=== PATIENT | female | born 1995 | race Two or more races ===

== ENCOUNTER 2018-04-02 09:09 | Outpatient (CLI) | payer OTHER ==
[~2018-04-02 09:09] MED LIST: FLEXERIL 10 MG PO; TORADOL60 MG IM; [UNRECOGNIZED DRUG - OTHER] PO
== END 2018-04-02 09:15 | disposition home or self-care (01) ==
LOC: LAB 09:09
DX: Z11.59 Encounter for screening for other viral diseases (principal); Z13.1 Encounter for screening for diabetes mellitus; Z11.3 Encounter for screening for infections with a predominantly sexual mode of transmission; E66.3 Overweight

== ENCOUNTER 2018-06-19 14:54 | Outpatient (CLI) | payer OTHER | END 2018-06-19 15:26 | disposition home or self-care (01) | LOC: NUCLEAR 14:54 | DX: I87.2 Venous insufficiency (chronic) (peripheral) (principal) ==

== ENCOUNTER 2018-11-26 08:47 | Outpatient (CLI) | payer OTHER | END 2018-11-26 11:25 | disposition home or self-care (01) | LOC: LAB 08:47 | DX: Z34.81 Encounter for supervision of other normal pregnancy, first trimester (principal) ==

== ENCOUNTER 2018-12-05 16:28 | Emergency (ER) | payer OTHER ==
[~2018-12-05] VITALS: Ht 165.1 cm; Wt 73.5 kg
[2018-12-05] MEDS ORDERED: ZANTAC150 MG PO (21:33)
[2018-12-05] MEDS ORDERED: ONDANSETRON ODT4 MG SL (21:33)
== END 2018-12-05 22:14 | disposition home or self-care (01) ==
LOC: ER 16:28
DX: O26.892 Other specified pregnancy related conditions, second trimester (principal); K29.70 Gastritis, unspecified, without bleeding; Z34.02 Encounter for supervision of normal first pregnancy, second trimester

== ENCOUNTER 2018-12-30 09:47 | Outpatient (CLI) | payer OTHER ==
[~2018-12-30 09:47] MED LIST changes: +ONDANSETRON ODT4 MG SL; +ZANTAC150 MG PO
== END 2018-12-30 10:53 | disposition home or self-care (01) ==
LOC: LAB 09:47
DX: Z34.81 Encounter for supervision of other normal pregnancy, first trimester (principal); Z34.82 Encounter for supervision of other normal pregnancy, second trimester

== ENCOUNTER 2019-02-06 09:51 | Outpatient (CLI) | payer OTHER | END 2019-02-06 09:56 | disposition home or self-care (01) | LOC: LAB 09:51 | DX: N30.00 Acute cystitis without hematuria (principal) ==

== ENCOUNTER 2019-02-12 09:41 | Inpatient (IN) | payer OTHER ==
[~2019-02-12] VITALS: Ht 165.1 cm; Wt 77.1 kg
[2019-02-12] MEDS ORDERED: PRENATAL 19 TA1 EACH PO (10:26)
--- NOTE | 2019-02-12 10:31 | NUR ---
PACIENTE REFIERE ABCESO EN EL AREA DE LA VAGINA.
--- NOTE | 2019-02-12 11:06 | NUR ---
PACIENTE ES EVALUADA POR DR YANEZ. SE ORIENTA A PACIENTE SOBRE ORDENES MEDICAS. SE COLECTAN MUESTRAS DE LABORATORIO ORDENADAS. SE CANALIZA PACIENTE Y SE ADMINISTRA MEDICAMENTO ORDENADO BAJO MEDIDAS ASEPTICAS. PENDIENTE A SER LLEVADA A WILI DE PARTOS PARA COLOCAR CORREAS.
== END 2019-02-16 12:17 | disposition home or self-care (01) | DRG 832 ==
LOC: ER 09:41 → OB/GYN 12:48 → LDR 12:48 → OB/GYN 02-13 09:46
PROVIDERS: ADMIT Obstetrics & Gynecology
PROC: 4A1HXCZ Monitoring of Products of Conception, Cardiac Rate, External Approach (ICD-10-PCS; principal; 2019-02-12)
DX: O98.812 Other maternal infectious and parasitic diseases complicating pregnancy, second trimester (principal); B37.41 Candidal cystitis and urethritis; N36.1 Urethral diverticulum; Z34.02 Encounter for supervision of normal first pregnancy, second trimester

== ENCOUNTER 2019-04-15 10:27 | Outpatient (CLI) | payer OTHER ==
[~2019-04-15 10:27] MED LIST changes: +PRENATAL 19 TA1 EACH PO
== END 2019-04-15 11:35 | disposition home or self-care (01) ==
LOC: NST 10:27
DX: Z34.83 Encounter for supervision of other normal pregnancy, third trimester (principal)

== ENCOUNTER 2019-04-16 08:57 | Outpatient (CLI) | payer OTHER | END 2019-04-16 10:00 | disposition home or self-care (01) | LOC: NST 08:57 | DX: Z34.83 Encounter for supervision of other normal pregnancy, third trimester (principal) ==

== ENCOUNTER 2019-05-06 10:02 | Outpatient (CLI) | payer OTHER ==
[~2019-05-06 10:02] MED LIST changes: +FLONASE16 GM NS; +GILTUSS LIQUID237 M1 PO; +PEPCID40 MG PO; +TRI-SPRINTEC1 TAB; +ZITHROMAX500 MG PO; +ZOFRAN8 MG PO; +ZYRTEC10 MG PO
== END 2019-05-06 15:00 | disposition home or self-care (01) ==
LOC: LAB 10:02
DX: Z34.83 Encounter for supervision of other normal pregnancy, third trimester (principal); Z11.4 Encounter for screening for human immunodeficiency virus [HIV]

== ENCOUNTER 2019-05-13 12:00 | Outpatient (CLI) | payer OTHER | END 2019-05-13 14:17 | disposition home or self-care (01) | LOC: NST 12:00 | DX: Z34.83 Encounter for supervision of other normal pregnancy, third trimester (principal) ==

== ENCOUNTER 2019-05-13 13:45 | Inpatient (IN) | payer OTHER ==
[~2019-05-13] VITALS: Ht 165.1 cm; Wt 3.2 kg
[2019-05-21] MEDS ORDERED: FOLIC ACID0.8 M1 PO (08:40)
== END 2019-05-24 14:13 | disposition home or self-care (01) | DRG 788 ==
LOC: OB/GYN 05-21 06:21 → LDR 05-21 06:21 → O/R 05-21 18:00 → OB/GYN 05-21 18:45
PROVIDERS: ADMIT Obstetrics & Gynecology
PROC: 10907ZC Drainage of Amniotic Fluid, Therapeutic from Products of Conception, Via Natural or Artificial Opening (ICD-10-PCS; 2019-05-21)
PROC: 3E033VJ Introduction of Other Hormone into Peripheral Vein, Percutaneous Approach (ICD-10-PCS; 2019-05-21)
PROC: 4A1HXCZ Monitoring of Products of Conception, Cardiac Rate, External Approach (ICD-10-PCS; 2019-05-21)
PROC: 10D00Z1 Extraction of Products of Conception, Low, Open Approach (ICD-10-PCS; principal; 2019-05-21 16:00)
DX: O82 Encounter for cesarean delivery without indication (principal); O65.4 Obstructed labor due to fetopelvic disproportion, unspecified; Z3A.38 38 weeks gestation of pregnancy; Z37.0 Single live birth